=== PATIENT | female | born 1975 | race Caucasian/White ===

== ENCOUNTER 2024-12-13 09:08 | Observation (INO) ==
--- NOTE | 2024-11-25 15:07 | PAT Medication Instructions ---
Medication Instructions Date of Service November 25, 2024 Home Medications multivitamin 1 tab PO 3XWK DO NOT take the morning of surgery multivitamin 1 tab PO 3XWK Other Notes NOTHING TO EAT OR DRINK AFTER MIDNIGHT. If you have any questions please call us at [phone] or [phone] or [phone] or [phone]
--- NOTE | 2024-11-29 10:57 | Anesthesiology Consultation ---
Date of Service November 29, 2024 Assessment & Plan (1) Encounter for pre-operative examination: - Check test DOS - Infectious disease screening: Per assessment on 11/29/24- No known recent infectious disease contacts or current infectious disease symptoms. - Patient acceptable risk for surgery pending surgeon-ordered PCP preop evaluation (MIGUEL, appt 12/11). Chart Review Chart Review: Patient seen in Pre Admission Testing Teaching & Discussion Pre-Anesthesia Teaching/Discussion Notes: Instructed NPO after midnight before surgery,except medications with 15 cc of water. Medication instructions provided according to the PAT guidelines. History Surgery Operation Date: 12/13/24 11:50 Proposed Procedures p C5-C6 Anterior Cervical Discectomy and Fusion, Spinal Cord Monitoring - Jigar Greenwood MD Height/Weight Height: 5 ft 10 in Weight: 68.8 kg Allergies Allergy/AdvReac Type Severity Reaction Status Date / Time No Known Drug Allergies Allergy Verified 11/25/24 14:03 Medications Home Medications Medication Instructions Recorded Confirmed Last Taken multivitamin 1 tab PO 3XWK 11/25/24 11/25/24 Unknown Past Medical History Medical History (Updated 11/29/24 @ 11:06 by Rashmi Fay) Allergic rhinitis Cervical myelopathy Cervical radiculopathy at C6 Cervical stenosis of spinal canal Idiopathic polyneuropathy Exercise / Class Metabolic Activity II 4-5 Yardwork/Stairs/Walk up hill (one FS: No CP, no SOB) Past Family History Family History Grandmother (Paternal) Hyperthyroidism Hypothyroidism Aunt Hyperthyroidism Hypothyroidism Mother No pertinent family history in first degree relatives Family history of reaction to anesthesia difficulty waking Father No pertinent family history in first degree relatives Sister No pertinent family history in first degree relatives Brother No pertinent family history in first degree relatives Past Surgical History Surgical History History of tooth extraction under local Past Anesthesia History No Hx of Anesthesia Complications * Mother: Slow to wake History of PONV No Hx of PONV and Hx of Motion Sickness Social History Smoking Status: Never smoker Do You Dip or Chew Tobacco: No Hx Alcohol Use: Yes alcohol intake frequency: a few times a month Hx Substance Use: No substance use type: does not use Review of Systems Patient denies chest pain, shortness of breath, dyspnea on exertion, fever, chills, cough, wheezing, palpitations. Physical Exam Vital Signs BP 99/64 (per patient, baseline BP on the low-normal range, asymptomatic) P 71 TEMP 98.2 SP02 98%RA RESP 16 Physical Midly decreased cervical extension range of motion. Full TMJ range of motion. TMD 3 finger breaths Mallampati Score III Dentition: intact Lungs: clear throughout to auscultation Cardiac: regular rate and rhythm, no murmurs noted Spine: normal Extremities: no LE edema Lab Results Anesthesia Preop Results Results Anesthesia Widget: WBC 5.80 K/ul (4.8-10.8) 11/29/24 Hgb 12.6 g/dl (12.0-16.0) 11/29/24 Hct 38.2 % (37.0-47.0) 11/29/24 Plt 240 K/uL (130-400) 11/29/24 Na 136 mmol/L (136-145) 11/29/24 K 4.4 mmol/L (3.5-5.1) 11/29/24 Cl 103 mmol/L (98-107) 11/29/24 CO2 27 mmol/L (21-32) 11/29/24 BUN 17 mg/dl (6-23) 11/29/24 Creat 0.68 mg/dl (0.6-1.2) 11/29/24 Glucose Level 91 mg/dl (70-99(Fasting)) 11/29/24 PT 11.4 Seconds (9.0-12.0) 11/29/24 PTT 27 Seconds (21-31) 11/29/24 INR 1.1 (0.9-1.1) 11/29/24 HA1c 5.5 % (4.5-5.6) 11/29/24 Blood Type A Positive 11/29/24 Antibody Screen NEGATIVE 11/29/24 Testing Other Testing C-spine xray Date: 10/14/24 IMPRESSION: Decreased height of the C5-C6 space with moderate narrowing on the left neural foraminal, consider complementing with MRI. C-spine MRI Date: 10/24/24 IMPRESSION: 1. Broad-based central disc protrusion at C5-C6 with associated osteophyte formation which indents the ventral aspect of the cord with cord compression and mild associated cord edema. This results in moderate to severe central canal stenosis and severe narrowing of the bilateral neural foramen at this level. Spine surgical consultation is recommended. 2. Otherwise, unremarkable MRI of the cervical spine.
[~2024-12-13 09:08] MED LIST: ACETAMINOPHEN 1000 MG/100 ML IV IV ONE; LIDOCAINE 2% 2 ML VIAL/AMP(20MG/ML) INFIL ONE; MIDAZOLAM HCL 1 MG/ML 2ML VIAL ONE; PROPOFOL IV EMULSION 10 MG/ML 20 ML VIAL IV ONE; REMIFENTANIL HCL 1 MG VIAL IV ONE; ROCURONIUM BROMIDE 10 MG/ML 5 ML VIAL IV ONE; SUCCINYLCHOLINE CHLORIDE 20 MG/ML 10 ML VIAL IV ONE; fentaNYL citrate PF 100 MCG/2 ML VIAL ONE
[2024-12-13] MEDS: LR 60ML/HR IV SCH (10:16)
[2024-12-13] MEDS: LR 15ML/HR IV SCH (10:16)
[2024-12-13] MEDS ORDERED: ePHEDrine sulfate 50 MG/ML AMP IV PRN (10:35)
[2024-12-13] MEDS ORDERED: ATROPINE SULFATE 0.1 MG/ML 10ML SYR IV PRN (10:35)
[2024-12-13] MEDS ORDERED: HYDROmorphone INJ 1 MG/ML SYRINGE IV PRN ×2 (10:35→16:18)
[2024-12-13] MEDS ORDERED: fentaNYL citrate PF 100 MCG/2 ML VIAL IV PRN (10:35)
--- NOTE | 2024-12-13 10:37 | History & Physical Bridge Note ---
Date of Service December 13, 2024 History & Physical Bridge Note I have examined the patient, reviewed the History & Physical and in the interval since the performance of the History & Physical I have noted the following changes of clinical significance: no changes noted. Plan for C5-6 ACDF, left arm pain worse
[2024-12-13] MEDS: ceFAZolin 2000MG 2,000 MG/15 ML SYR IV SCH ×2 (11:35→20:19)
[2024-12-13] MEDS ORDERED: KETAMINE HCL 10MG/ML SYR ONE (11:57)
[2024-12-13] MEDS ORDERED: PHENYLEPHRINE 100MCG/ML 5ML SYR ONE (12:07)
[2024-12-13] MEDS ORDERED: HYDROmorphone INJ 2 MG/ML SYR/VIAL ONE (12:40)
[2024-12-13] MEDS ORDERED: ONDANSETRON INJ 2 MG/ML 2 ML VIAL ONE (12:42)
[2024-12-13] MEDS ORDERED: DEXAMETHASONE SOD INJ 4 MG/ML VIAL ONE (12:42)
[2024-12-13] MEDS: VANCOMYCIN HCL 1000MG/20ML VIAL ONE (14:04)
[2024-12-13] MEDS: FLOSEAL HEMOSTATIC MATRIX 10ML TOP ONE (14:04)
[2024-12-13] MEDS ORDERED: LIDOCAINE 2% 2 ML VIAL/AMP(20MG/ML) INFIL ONE (14:08)
--- NOTE | 2024-12-13 14:29 | Post Operative Brief Note ---
PG Immediate Post Op with CF Date of Surgery December 13, 2024 Pre & Post Diagnosis Operation Date: 12/13/24 10:50 Pre-Op Diagnosis: C5-6 Herniated Nucleus Pulposus, Cervical Myelopathy Post-Op Diagnosis: C5-6 Herniated Nucleus Pulposus, Cervical Myelopathy I identified the patient and participated in the time-out.: Yes Procedure Operation Date: 12/13/24 10:50 Actual Procedures p C5-C6 Anterior Cervical Discectomy and Fusion, Spinal Cord Monitoring(Not Applicable) - Jigar Greenwood MD Surgeon Jigar Greenwood MD Carousel Attendant Terry Giang PA-C Estimated Blood Loss 15 Findings Consistent with Post-Op Diagnosis Drains Rob Drain Complications none Disposition Disposition: Recovery Room
--- NOTE | 2024-12-13 14:30 | Fluoroscopy Report ---
FL cervical 2-3V CLINICAL HISTORY: ACDF C5-C6 TECHNIQUE: 4 views were obtained with the C-arm in the OR with the above procedure. Total fluoroscopy time was 37.0 seconds. Radiation dose was 2.81 mGy. Comparison: Comparison is made to MRI cervical spine 10/24/2024 FINDINGS/IMPRESSION: Intraoperative images were obtained of C5-C6 ACDF. Please correlate with intraoperative fluoroscopy and operative report. ACT 112: Negative or not required by law. Electronically signed by: Nicho Chávez M.D. 12/13/2024 2:29 PM
--- NOTE | 2024-12-13 14:46 | Operative Report ---
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 Cervical canal stenosis I identified the patient and participated in the time-out.: Yes Procedure Operation Date: 12/13/24 10:50 Actual Procedures C5-C6 Anterior Cervical Discectomy and Fusion (27816) Insertion of interbody spacer for fusion (17528) Anterior cervical instrumentation separate from interbody device (26609) Allograft for spinal fusion (55760) Instrumentation: Camber Spira interbody cage, Camber Altivo anterior cervical plate Surgeon Jigar Greenwood MD Home Hosp[facility] Rn Terry Giang PA-C Estimated Blood Loss 15 Findings Consistent with Post-Op Diagnosis Specimens None Drains Rob Drain Complications none Disposition Disposition: Recovery Room Description of Procedure Patient was met in the preoperative holding area, surgical site was marked. All questions were answered, surgical consent was obtained in the office. She was brought to the operating room where general anesthesia was induced. She was placed in the supine position on a Yehuda flat top operating table. She was prepped and draped in the usual sterile fashion after securing her arms and padding all prominences. SCDs were placed for DVT prophylaxis. Neuromonitoring leads were attached. Verbal timeout performed identify the patient by name date of and verifying the correct procedure. Preoperative fluoroscopy was used to approximate an anterior cervical incision. Skin was incised with a 10 blade scalpel, the platysma muscle was split and elevated. I identified the interval between the strap musculature and the sternocleidomastoid. Using blunt dissection I dissected through this plane to the anterior cervical spine. I was able to palpate the carotid pulse laterally and care was taken to make sure that this was kept lateral to the dissection. Spinal needle was placed into the C5-6 disc space and fluoroscopy used to verify the correct level. The prevertebral fascia was then elevated off the anterior cervical bodies of C5 and C6. Longus coli muscles were elevated off the anterior spine with care taken to protect the sympathetic ganglion laterally. Self-retaining Trimline retractor blades were placed, Manzanola pins placed in the bodies of C5 and C6. Again fluoroscopy was used to verify the correct level. Slight distraction was applied across the Manzanola pins. The C5-6 disc was then incised with a 15 blade scalpel. Complete discectomy was performed at the C5-6 level removing all disc fragments. Posterior osteophytes were taken down with a high-speed bur. Posterior longitudinal ligament was identified and removed completely. Bilateral foraminotomies were performed. This provided excellent decompression of the cervical spinal cord as well as exiting C6 nerve roots at this level. The endplates within the disc space were decorticated to encourage fusion. At appropriate sized cervical disc spacer large footprint 7 mm high was selected from [employer]. Trials were used under fluoroscopy. The final implant was then selected and packed with allograft bone material and placed into the disc space under fluoroscopic guidance. An anterior cervical plate was then selected which was independent of the interbody device. This was placed over the interbody spacer within the C5-6 disc space and screws were placed through the plate into the C5 and C6 vertebral bodies. Locking mechanism of the plate was engaged. This completed anterior instrumentation of the cervical spine independent of interbody device. Wound was thoroughly irrigated. Final x-rays were obtained showing instrumentation in good position. There was no change in motor evoked potentials or SSEPs on neuromonitoring throughout the case. A Rob drain was placed exiting out through the skin. The platysma was closed with Vicryl suture. Skin closed with Monocryl. Steri-Strips applied over the incision and a sterile dressing applied. Drain was attached to bulb suction. She was transferred back to her hospital bed and taken to PACU in stable condition. I attest to the content of the Intraoperative Record and any orders documented therein. Any exceptions are noted below.
[2024-12-13] MEDS: ONDANSETRON INJ 2 MG/ML 2 ML VIAL IV PRN (15:50)
--- NOTE | 2024-12-13 16:00 | Anesthesiology Progress Note ---
Date of Service December 13, 2024 Anesthesia Post Procedure Vital Signs Vital Signs: Temp Pulse Pulse Resp BP Pulse Ox O2 Del Method 12/13/24 15:45 36.3 C L 74 15 100/65 98 Room Air 12/13/24 15:35 89 15 94/61 L 98 Room Air 12/13/24 15:25 80 12 97/57 L 98 Room Air 12/13/24 15:15 81 14 97/65 L 98 Room Air 12/13/24 15:05 86 11 L 102/67 96 Room Air 12/13/24 14:55 84 16 108/70 97 Room Air 12/13/24 14:45 86 18 120/78 100 Oxymask 12/13/24 14:37 36.1 C L 92 H 12 106/78 100 Oxymask 12/13/24 10:08 36.8 C 88 20 114/70 100 Room Air O2 Flow Rate 12/13/24 15:45 12/13/24 15:35 12/13/24 15:25 12/13/24 15:15 12/13/24 15:05 12/13/24 14:55 12/13/24 14:45 4 12/13/24 14:37 4 12/13/24 10:08 Pain Intensity Left Upper Back: Pain Intensity: 2 Transfer of Care Handoff Completed per policy Notes Mental Status: alert / awake / arousable Patient Amnestic to Procedure: Yes Nausea / Vomiting: adequately controlled Pain: adequately controlled Airway Patency, RR, SpO2: stable & adequate BP & HR: stable & adequate Hydration State: stable & adequate Anesthetic Complications: no major complications apparent and Pt Satisfied with anesthetic care
[2024-12-13] MEDS ORDERED: tiZANidine HCL 4 MG TABLET PO PRN (16:18)
[2024-12-13] MEDS ORDERED: LORazepam 2 MG/1 ML VIAL IV PRN (16:18)
[2024-12-13] MEDS ORDERED: ONDANSETRON 4 MG OD TAB PO PRN (16:18)
[2024-12-13] MEDS ORDERED: diphenhydrAMINE Capsule 25 MG CAP PO PRN (16:18)
[2024-12-13] MEDS ORDERED: PROMETHAZINE 12.5 MG/50.5 ML BAG IV PRN (16:18)
[2024-12-13] MEDS ORDERED: DO NOT ADMINISTER FLU VACCINE PRN (16:18)
[2024-12-13] MEDS ORDERED: FAMOTIDINE 20 MG TAB PO PRN (16:18)
[2024-12-13] MEDS ORDERED: RACEPINEPHRINE 2.25% NEBU SOLN 0.5 ML VIAL INH PRN (16:18)
[2024-12-13] MEDS ORDERED: DO NOT ADMINISTER PNEUMOCOCCAL VACCINE PRN (16:18)
[2024-12-13] MEDS ORDERED: dexAMETHasone 8 MG in SYRINGE 0 ML IV PRN (16:18)
[2024-12-13] MEDS ORDERED: oxyCODONE/ACETAMINOPHEN 5mg/325mg TAB PO PRN (16:18)
[2024-12-13] MEDS ORDERED: NALOXONE HCL 0.4 MG/1 ML VIAL/CARP IV PRN (16:18)
[2024-12-13] MEDS ORDERED: SOD PHOSPHATE/SOD BIPHOSPHATE ENEMA 132 ML BTL PR PRN (16:18)
[2024-12-13] MEDS ORDERED: hydrOXYzine HCl 25 MG TAB PO PRN (16:18)
[2024-12-13] MEDS ORDERED: ONDANSETRON INJ 2 MG/ML 2 ML VIAL IV PRN (16:18)
[2024-12-13] MEDS ORDERED: ALUMINUM/MAGNESIUM SUSP 30 ML UDC PO PRN (16:18)
[2024-12-13] MEDS ORDERED: MAGNESIUM HYDROXIDE SUSP 30 ML UDC PO PRN (16:18)
[2024-12-13] MEDS ORDERED: LORazepam 0.5 MG TAB PO PRN (16:18)
[2024-12-13] MEDS ORDERED: bisacodyL 10 MG SUPP PR PRN (16:18)
[2024-12-13] MEDS ORDERED: HYDROmorphone INJ 0.5 MG/0.5 ML SYR IV PRN (16:18)
[2024-12-13] MEDS: FAMOTIDINE/PF 20 MG/2 ML VIAL IV ONE (16:22)
[2024-12-13] MEDS: ACETAMINOPHEN 500 MG TAB PO PRN (17:04)
[2024-12-13] MEDS: METOCLOPRAMIDE HCL INJ 5 MG/ML 2 ML VIAL IV PRN (17:24)
[2024-12-13] MEDS: dexAMETHasone 6 MG in SYRINGE 0 ML IV SCH (18:03)
[2024-12-13] MEDS: DOCUSATE SODIUM/SENNA 50/8.6MG TAB PO SCH (20:20)
[2024-12-14] MEDS: POLYETHYLENE (MIRALAX) 17 GM PACK PO SCH (05:11)
[2024-12-14 06:54] LABS: Basophils # (auto) 0.01 K/uL (0.00-0.20); Basophils % (auto) 0.1 %; Hematocrit (blood only) 35.9 % (37.0-47.0); Hemoglobin 12.2 g/dl (12.0-16.0); Immature Granulocytes # (auto) 0.06 K/uL (0.01-0.20); Immature Granulocytes % (auto) 0.5 %; Lymphocytes # (auto) 1.09 K/uL (1.20-3.40); Mean Corpuscular Hemoglobin 30.7 pg (25.0-34.0); Mean Corpuscular Volume 90.2 fL (80.0-100.0); Mean Platelet Volume 9.7 fL (9.4-12.4); Monocytes # (auto) 0.37 K/uL (0.11-0.59); Monocytes % (auto) 3.1 %; Neutrophils # (auto) 10.55 K/uL (1.40-6.50); Neutrophils % (auto) 87.3 %; Platelet Count 204 K/uL (130-400); RDW Coefficient of Variation 12.5 % (11.5-14.5); RDW Standard Deviation 41.6 fL (36.4-46.3); Red Blood Count 3.98 M/uL (4.20-5.40); White Blood Count 12.08 K/ul (4.8-10.8)
[2024-12-14 07:12] LABS: BUN Creatinine Ratio 18.6 (10-20); Calcium 8.8 mg/dl (8.6-10.3); Creatinine Clr Calc Pharmacy 123.5 ml/min; Potassium 4.3 mmol/L (3.5-5.1)
[2024-12-14 07:18] VITALS: RESP 16
[2024-12-14 09:14] VITALS: BP 109/72; TEMP 98.2; O2SAT 99
--- NOTE | 2024-12-14 10:11 | Orthopedic Progress Note ---
Date of Service December 14, 2024 Assessment & Plan (1) S/P cervical spinal fusion: dc drain soft collar is for comfort only dc home today Subjective HANK overnight, minimal incisional pain, neck feels slightly stiff as expected. Drain low output, mild dysphagia Review of Systems All systems reviewed & are unremarkable except as noted in HPI & below. Physical Exam 5/5 strength bilateral C5*-T1 myotomes SILT C5-T1 dress ing c/d/i Results & Data Results & Data Laboratory Results . Diagnostic Findings . PG Care Time/CCT Total # of Minutes Spent Total Time Spent with Patient: Total time spent is greater than 50% in coordination of care (as documented) at patient's floor/unit and/or counseling patient: Coding Level of Care Code 64127 Post Operative Follow-Up Diagnoses S/P cervical spinal fusion Z98.1
--- NOTE | 2024-12-14 10:29 | Discharge Summary ---
Date of Service December 14, 2024 Principal Diagnosis Same as "Discharge Diagnosis" noted below under Discharge Instructions. Discharge Exam 5/5 strength bilateral C5*-T1 myotomes SILT C5-T1 dress ing c/d/i Discharge Data Procedures Performed Operation Date: 12/13/24 10:50 Actual Procedures p C5-C6 Anterior Cervical Discectomy and Fusion, Spinal Cord Monitoring(Not Applicable) - Jigar Greenwood MD Ordered Studies 12/13/24 10:50 FL cervical 2-3V Routine Hospital Course (1) S/P cervical spinal fusion: Plan Patient was admitted postoperatively for pain control and mobilization with physical therapy. They worked with physical therapy and met all goals. Pain was controlled with IV pain medication and transitioned to oral medications. Normal return of bowel and bladder function. They worked with physical therapy, vital signs were acceptable, no need for transfusion, deemed safe for discharge. PG Care Time/CCT Total # of Minutes Spent Total Time Spent with Patient: Total time spent is greater than 50% in coordination of care (as documented) at patient's floor/unit and/or counseling patient: Discharge Plan Discharge Items Patient Disposition: Home - Self-Care Reason For Visit: S/P ACDF Discharge Diagnosis: Cervical Disc Herniation Cervical Myelopathy s/p Cervical Fusion Activity: As commented below Activity Comment: follow post op instruction sheet Lifting: No more than 5 pounds Bathing Comment: follow post op instruction sheet Driving/Machine Use: may drive when off pain medications and can safely turn head to see Non-emergency contact: Surgeon Call non-emergency contact if: your symptoms worsen, your pain is worsening and your temperature is above 101 Follow-up/Referrals: Mookie Villegas CRNP [Primary Care Provider] - Diet: Regular Diet Comment: start soft foods and advance as tolerated Addtl Attending Provider Instructions: follow post op instruction sheet follow up in office 2 weeks Pending Studies at Discharge: No Stand-Alone Forms: My [employer], Smoking Cessation Medications and DC Order Prescriptions: New oxycodone-acetaminophen 5-325 mg Tablet 1 tab PO Q4H PRN (Reason: pain) 5 Days Qty: 30 0RF methocarbamol 500 mg tablet 500 mg PO Q6H PRN (Reason: muscle spasms) Qty: 120 0RF Continued multivitamin Tablet 1 tab PO 3XWK Discharge Orders: Discharge Order (Routine); Ordered 12/14/24 Ordered By: Jigar Greenwood Admission Data Admit Date/Time: 12/13/24 14:35 Attending Provider: Jigar Greenwood Admit Provider: Jigar Greenwood Primary Care Provider: Mookie Villegas
[2024-12-14 11:01] VITALS: PULSE 87
== END 2024-12-14 11:38 | disposition home or self-care (01) ==
LOC: 3E 09:08 → ASU 09:08